=== PATIENT | male | born 1925 | race Caucasian/White ===

== ENCOUNTER → 2016-02-17 | Outpatient (CLI) | payer OTHER ==
[~2016-02-17] MED LIST: ALLO100T PO; ASCA500 PO; ASPI81TA28 PO; DOCU100C31 PO; DONE1TAB11 PO; HYT/2 PO; LATA0.009 OPB; LEVO125T4 PO; MIRA1TAB3 PO; MISC1CAP PO; MULTTAB61 PO; POLY335019 PO; SENN8.6T15 PO; SIMV20TA2 PO; TIMO0.5S2 OPB; TRAM-10 PO
[2016-02-17 12:31] LABS: HEMATOCRIT 37.1 % (42-52); MEAN CELL VOLUME 98.7 fL (80-100); MEAN CORPUSCULAR HEMOGLOBIN 33.5 pg (25-34); PLATELET COUNT 115 K/uL (130-400); RED BLOOD COUNT 3.76 M/uL (4.7-6.1); WHITE BLOOD COUNT 2.67 K/uL (4.8-10.8)
[2016-02-17 13:34] LABS: BLOOD UREA NITROGEN 26 mg/dl (7-18); BUN/CREATININE RATIO 20.1 (10-20); CALCIUM 8.5 mg/dl (8.5-10.1); CARBON DIOXIDE 26 mmol/L (21-32); CHLORIDE 99 mmol/L (98-107); GLUCOSE 79 mg/dl (70-99); SODIUM 136 mmol/L (136-145)
== END | disposition home or self-care (01) ==
LOC: C.LABWYN 11:36
PROVIDERS: ATTEND Nurse Practitioner Adult Health
DX: R50.9 Fever, unspecified (principal)